=== PATIENT | male | born 1970 | race American Indian/Alaskan Native ===

== ENCOUNTER 2017-08-17 08:51 | Day surgery (SDC) | payer MEDICARE ==
[~2017-08-17 08:51] MED LIST: ANCEF/STERILE WATER 2 GM/20 ML IV NR; MARCAINE 0.25% INFILTRATI ONE; NACL 0.9% IR ONE; NUPERCAINAL PR ONE
--- NOTE | 2017-08-17 10:02 | Anesthesia Consultation ---
Anesthesia Consult and Med Hx Date of service: 08/17/17 - Airway Anesthetic Teeth Evaluation: Good ROM Head & Neck: Adequate Mental/Hyoid Distance: Adequate Mallampati Class: Class I Intubation Access Assessment: Good - Pulmonary Exam CTA: Yes - Cardiac Exam Cardiac Exam: RRR - Pre-Operative Health Status ASA Pre-Surgery Classification: ASA2 Proposed Anesthetic Plan: General - Pulmonary Hx Smoking: Yes (1/2 PPD FOR 30 YEARS) Hx Asthma: No Hx Respiratory Symptoms: No SOB: No COPD: No Home Oxygen Therapy: No Hx Pneumonia: No Hx Sleep Apnea: No - Cardiovascular System Hx Hypertension: No Hx Coronary Artery Disease: No Hx Heart Attack/AMI: No Hx Angina: No Hx Percutaneous Transluminal Coronary Angioplasty (PTCA): No Hx Cardia Arrhythmia: No Hx Pacemaker: No Hx Internal Defibrillator: No Hx Valvular Heart Disease: No Hx Heart Murmur: No - Central Nervous System Hx Neuromuscular Disorder: No Hx Seizures: No CVA: No Hx Back Pain: Yes Hx Psychiatric Problems: Yes - Gastrointestinal Hx Gastroesophageal Reflux Disease: Yes (asymtomatic with med) - Endocrine Hx Renal Disease: No Hx End Stage Renal Disease: No Hx Cirrhosis: No Hx Liver Disease: No Hx Insulin Dependent Diabetes: No Hx Non-Insulin Dependent Diabetes: No Hx Thyroid Disease: No Hx Hypothyroidism: No Hx Hyperthyroidism: No - Hematic Hx Anemia: No Hx Sickle Cell Disease: No - Other Systems Hx Alcohol Use: No (DAILY) Hx Substance Use: No (MARIJUANA) Hx Cancer: No Hx Obesity: No
--- NOTE | 2017-08-17 10:04 | Anesthesia Day of Surgery ---
Anesthesia Day of Surgery - Day of Surgery Patient H&P Reviewed: Yes Patient is NPO: Yes Beta Blockers: No Cardiac Clearance: No Pulmonary Clearance: No Jackson's Test: N/A
[2017-08-17] MEDS ORDERED: NACL 0.9% 1000 ML 1,000 ML IV SCH (11:00)
[2017-08-17] MEDS ORDERED: VERSED IV NR (11:00)
[2017-08-17] MEDS ORDERED: MARCAINE 0.25% INFILTRATI ONE ×3 (12:13→13:03)
[2017-08-17] MEDS ORDERED: DIPRIVAN 10 MG/ML IV ONE (12:27)
[2017-08-17] MEDS ORDERED: DILAUDID ONE (12:27)
[2017-08-17] MEDS ORDERED: NUPERCAINAL PR NR (13:00)
[2017-08-17] MEDS ORDERED: ZOFRAN ONE (13:08)
[2017-08-17] MEDS ORDERED: ZEMURON IV ONE (13:08)
[2017-08-17] MEDS ORDERED: XYLOCAINE MPF 2% ONE (13:08)
[2017-08-17] MEDS ORDERED: ROBINUL ONE (13:08)
[2017-08-17] MEDS ORDERED: NEOSTIGMINE ONE (13:08)
[2017-08-17] MEDS ORDERED: NACL 0.9% IR ONE (13:11)
[2017-08-17] MEDS ORDERED: ePHEDrine SULFATE ONE (13:17)
[2017-08-17] MEDS ORDERED: NUPERCAINAL PR ONE (13:24)
--- NOTE | 2017-08-17 13:44 | Operative Report ---
Operative Report Operative Report: Date of procedure: 08/17/2017 Pre-operative diagnosis: Anal fistula Post-operative diagnosis: Anal fistula with associated fissure Procedure name(s): Examination under anesthesia, anal fistulectomy, lateral internal sphincterotomy Surgeon: Domi Hernández MD Delivery Table Feeder: None Anesthesia: General, 0.25% Marcaine, dibucaine ointment EBL: Minimal Complications: None Instrument Count: Correct Indications: This is a 47-year-old male with a history of chronic anal pain and drainage clinical examination was consistent with an exit site at the 11 o' clock position. He was offered the above named procedures possible treatment modality. The risks and benefits were discussed and all questions were answered. He was subsequently brought to the OR. Findings: Anal fistula with associated fissure at the 10:00 to 11 o'clock position Procedure: We reviewed the informed consent the patient was then placed supine upon the table. After adequate anesthesia was reached he is positioned in jackknife prone and then prepped and draped in usual sterile fashion. I performed a digital rectal exam. There were no significant findings at this time. I attempted to probe the external orifice of the fissure, however this appeared to be scarred down with very limited passage of the probe. Gentle probing from the internal aspect of the rectum near the anal crypts revealed a partial passage. At this time I injected local anesthetic. This was done in a pudendal nerve block manner. I then made an elliptical incision around the anal fistula at 11:00 as this was palpable scarring. Using electrocautery, I completely dissected free the anal fistula along with the overlying skin. In the process and anal fissure was identified with a sentinel pile. The pile was excised along with the fistula. I then dissected underneath the internal sphincter and transected the muscle using electrocautery at the 9 o'clock position. I ensured hemostasis. I then placed a dibucaine coated Gelfoam plug within the anal canal. The patient tolerated the procedure well. He was awakened, extubated, and transferred to the recovery room in no apparent distress.
--- NOTE | 2017-08-17 13:48 | Short Stay Summary ---
Short Stay Documentation Date of service: 08/17/17 - History H&P: dictated - Allergies and Medications Current Medications: Allergies No Known Allergies Allergy (Verified 08/16/17 13:32) Home Medications Medication Instructions Recorded Confirmed Last Taken Type HYDROcodone/APAP 5-325 [[place] 1 each PO Q6HR PRN 08/16/17 08/17/17 08/10/17 History 5/325] Vortioxetine Hydrobromide 10 mg PO DAILY 08/16/17 08/17/17 08/10/17 History [Trintellix] Active Medications Cefazolin Sodium (Ancef/Sterile Water 2 Gm/20 Ml) 2 gm IV PREOP NR Stop: 08/17/17 23:59 Dibucaine (Nupercainal) 1 applic DE PREOP NR Stop: 08/17/17 21:00 Sodium Chloride (Nacl 0.9% 1000 Ml) 1,000 mls @ 100 mls/hr IV DIRECT LUIS Last Admin: 08/17/17 10:35 Dose: 100 mls/hr Midazolam HCl (Versed) 2 mg IV PREOP NR Stop: 08/17/17 23:59 Last Admin: 08/17/17 10:35 Dose: 2 mg - Brief post op/procedure progress note Date of procedure: 08/17/17 Pre-op diagnosis: anal fistula Post-op diagnosis: other (anal fistula with associated anal fissure) Procedure: Examination under anesthesia, anal fistulectomy, lateral internal sphincterotomy Anesthesia: GETA, local Findings: As per note Surgeon: MISSAEL CONNER Estimated blood loss: minimal Pathology: list (anal fistula) Specimen disposition: to lab Condition: stable - Disposition Condition at discharge: Stable Disposition: [id number] TO HOME OR SELFCARE Short Stay Discharge Plan Activity: no restrictions, advance as tolerated Diet: regular Wound: other (sitz bath 3 times a day) Follow up with: BHAVIN ALEXANDER MD [Primary Care Provider] - 7 Days MISSAEL CONNER MD [Staff Physician] - 7 Days Prescriptions: Docusate Sodium [Colace] 100 mg PO BID #60 capsule oxyCODONE /ACETAMINOPHEN [Percocet 5/325] 1 tab PO Q6HR PRN #30 tablet PRN Reason: Pain
--- NOTE | 2017-08-17 14:36 | Post Anesthesia Evaluation ---
- Post Anesthesia Evaluation Patient Participated: Yes Airway Patent: Yes Stable Respiratory Function: Yes Temp > 96.8F: Yes Pain Manageable: Yes Adequeate Hydration: Yes Anesthesia Complications: No
[2017-08-17] MEDS ORDERED: PERCOCET 5/325 PO SCH (15:00)
[2017-08-17 15:35] VITALS: BP 121/84
== END 2017-08-17 15:25 | disposition home or self-care (01) ==
LOC: OR 08:51
PROVIDERS: ATTEND Surgery
DX: K60.3 Anal fistula (principal); K60.2 Anal fissure, unspecified; K21.9 Gastro-esophageal reflux disease without esophagitis; F17.210 Nicotine dependence, cigarettes, uncomplicated; F41.9 Anxiety disorder, unspecified
CPT/HCPCS: 46275; 88304; J0690; J1170; J2250; J2405; J2704; J2710; J7030